=== PATIENT | female | born 1955 | race Caucasian/White ===

== ENCOUNTER → 2016-11-11 | Outpatient (REF) | payer BC ==
[2016-11-11 12:51] LABS: ALBUMIN 3.8 GM/DL (3.2-5.2); ALBUMIN/GLOBULIN RATIO 1.06 (1.00-1.93); ALKALINE PHOSPHATASE 109 U/L (45-117); ALT/SGPT 32 U/L (12-78); ANION GAP 10 MEQ/L (8-16); AST/SGOT 16 U/L (15-37); BILIRUBIN,TOTAL 0.5 MG/DL (0.2-1.0); BLOOD UREA NITROGEN 14 MG/DL (7-18); CALCIUM LEVEL 9.9 MG/DL (8.8-10.2); CARBON DIOXIDE LEVEL 31 MEQ/L (21-32); CHLORIDE LEVEL 98 MEQ/L (98-107); CHOLESTEROL LEVEL 140 MG/DL (<200); CREATININE FOR GFR 0.83 MG/DL (0.55-1.02); GLOMERULAR FILTRATION RATE > 60.0 (>45); GLUCOSE, FASTING 178 MG/DL (80-110); POTASSIUM SERUM 3.6 MEQ/L (3.5-5.1); SODIUM LEVEL 139 MEQ/L (136-145); TOTAL PROTEIN 7.4 GM/DL (6.4-8.2); TRIGLYCERIDES LEVEL 242 MG/DL (<150)
== END ==
LOC: M SFHCADAM 08:02
PROVIDERS: ATTEND Physician Assistant Medical
DX: E78.5 Hyperlipidemia, unspecified (principal); E11.9 Type 2 diabetes mellitus without complications

== ENCOUNTER → 2017-05-13 | Outpatient (REF) | payer BC ==
[2017-05-13 13:07] LABS: BASO # 0.1 10^3/uL (0.0-0.2); BASO % 0.8 % (0.0-1.0); EOS # 0.3 10^3/uL (0.0-0.50); EOS % 2.5 % (0.0-3.0); IMMATURE GRANULOCYTE % 0.4 % (0-0); LYMPH # 2.8 10^3/uL (1.5-4.5); LYMPH % 25.9 % (24.0-44.0); MEAN CORPUSCULAR HEMOGLOBIN 28.4 pg (27.0-33.0); MEAN CORPUSCULAR HGB CONC 33.1 g/dl (32.0-36.5); MEAN CORPUSCULAR VOLUME 85.6 fl (80.0-96.0); MONO # 0.6 10^3/uL (0.0-0.8); MONO % 5.7 % (0.0-5.0); NEUTROPHILS # 6.9 10^3/uL (1.8-7.7); NEUTROPHILS % 64.7 % (36.0-66.0); PLATELET COUNT, AUTOMATED 214 10^3/uL (150-450); RED CELL DISTRIBUTION WIDTH 13.9 % (11.5-14.5); WHITE BLOOD COUNT 10.6 10^3/uL (4.0-10.0)
[2017-05-13 13:59] LABS: VITAMIN B12 LEVEL 642 PG/ML
[2017-05-13 14:00] LABS: FOLATE > 24.0 NG/ML
[2017-05-13 14:01] LABS: ALBUMIN 3.7 GM/DL (3.2-5.2); ALBUMIN/GLOBULIN RATIO 0.97 (1.00-1.93); ALKALINE PHOSPHATASE 133 U/L (45-117); ALT/SGPT 84 U/L (12-78); ANION GAP 8 MEQ/L (8-16); AST/SGOT 54 U/L (7-37); BILIRUBIN,TOTAL 0.3 MG/DL (0.2-1.0); BLOOD UREA NITROGEN 17 MG/DL (7-18); CALCIUM LEVEL 8.9 MG/DL (8.8-10.2); CARBON DIOXIDE LEVEL 30 MEQ/L (21-32); CHLORIDE LEVEL 97 MEQ/L (98-107); CHOLESTEROL LEVEL 145 MG/DL (<200); CREATININE FOR GFR 0.76 MG/DL (0.55-1.02); FREE T4 0.92 NG/DL (0.76-1.46); GLOMERULAR FILTRATION RATE > 60.0 (>45); GLUCOSE, FASTING 257 MG/DL (80-110); MAGNESIUM LEVEL 2.1 MG/DL (1.8-2.4); POTASSIUM SERUM 4.2 MEQ/L (3.5-5.1); SODIUM LEVEL 135 MEQ/L (136-145); TOTAL PROTEIN 7.5 GM/DL (6.4-8.2); TRIGLYCERIDES LEVEL 445 MG/DL (<150)
== END ==
LOC: M SFHCADAM 11:15
PROVIDERS: ATTEND Physician Assistant Medical
DX: E11.9 Type 2 diabetes mellitus without complications (principal); E78.5 Hyperlipidemia, unspecified; E55.9 Vitamin D deficiency, unspecified; E53.8 Deficiency of other specified B group vitamins

== ENCOUNTER → 2017-09-28 | Outpatient (REF) | payer BC ==
[2017-09-28 12:58] LABS: ALBUMIN 3.8 GM/DL (3.2-5.2); ALBUMIN/GLOBULIN RATIO 0.93 (1.00-1.93); ALKALINE PHOSPHATASE 144 U/L (45-117); ALT/SGPT 111 U/L (12-78); ANION GAP 10 MEQ/L (8-16); AST/SGOT 70 U/L (7-37); BILIRUBIN,TOTAL 0.4 MG/DL (0.2-1.0); BLOOD UREA NITROGEN 20 MG/DL (7-18); CALCIUM LEVEL 9.4 MG/DL (8.8-10.2); CARBON DIOXIDE LEVEL 30 MEQ/L (21-32); CHLORIDE LEVEL 95 MEQ/L (98-107); CHOLESTEROL LEVEL 119 MG/DL (<200); CHOLESTEROL RISK RATIO 5.409 (<5); CREATININE FOR GFR 0.98 MG/DL (0.55-1.30); GLOMERULAR FILTRATION RATE > 60.0 (>45); GLUCOSE, FASTING 283 MG/DL (70-100); HDL CHOLESTEROL 22 MG/DL (>40); LDL CHOLESTEROL 47.8 MG/DL (<100); NON-HDL-C 97 MG/DL; POTASSIUM SERUM 3.7 MEQ/L (3.5-5.1); SODIUM LEVEL 135 MEQ/L (136-145); TOTAL PROTEIN 7.9 GM/DL (6.4-8.2); TRIGLYCERIDES LEVEL 246 MG/DL (<150)
[2017-09-28 13:23] LABS: ESTIMATED AVERAGE GLUCOSE 237 MG/DL (60-110); HEMOGLOBIN A1c 9.9 %
== END ==
LOC: M SFHCADAM 10:00
DX: E11.9 Type 2 diabetes mellitus without complications (principal); E78.5 Hyperlipidemia, unspecified; E55.9 Vitamin D deficiency, unspecified
CPT/HCPCS: 80053

== ENCOUNTER 2017-10-13 06:44 | Outpatient (CLI) | payer BC | END 2017-10-14 | LOC: M RAD 06:44 | DX: K76.0 Fatty (change of) liver, not elsewhere classified (principal); K75.89 Other specified inflammatory liver diseases; N28.1 Cyst of kidney, acquired | CPT/HCPCS: 76705 ==

== ENCOUNTER → 2018-01-19 | Outpatient (REF) | payer BC ==
[2018-01-19 12:44] LABS: AMMONIA 34 uMOL/L (<32)
[2018-01-19 12:53] LABS: ALBUMIN 3.7 GM/DL (3.2-5.2); ALBUMIN/GLOBULIN RATIO 0.95 (1.00-1.93); ALKALINE PHOSPHATASE 108 U/L (45-117); ALT/SGPT 66 U/L (12-78); ANION GAP 9 MEQ/L (8-16); AST/SGOT 43 U/L (7-37); BILIRUBIN,TOTAL 0.3 MG/DL (0.2-1.0); BLOOD UREA NITROGEN 10 MG/DL (7-18); CALCIUM LEVEL 9.5 MG/DL (8.8-10.2); CARBON DIOXIDE LEVEL 27 MEQ/L (21-32); CHLORIDE LEVEL 104 MEQ/L (98-107); CREATININE FOR GFR 0.86 MG/DL (0.55-1.30); GLOMERULAR FILTRATION RATE > 60.0 (>45); GLUCOSE, FASTING 234 MG/DL (70-100); POTASSIUM SERUM 4.1 MEQ/L (3.5-5.1); SODIUM LEVEL 140 MEQ/L (136-145); TOTAL PROTEIN 7.6 GM/DL (6.4-8.2)
[2018-01-19 12:57] LABS: TOTAL 25(OH) VITAMIN D 28.5 NG/ML (30.0-100.0)
[2018-01-19 13:09] LABS: HEPATITIS B SURFACE ANTIGEN NEGATIVE (NEGATIVE)
[2018-01-19 13:30] LABS: ESTIMATED AVERAGE GLUCOSE 183 MG/DL (60-110)
[2018-01-19 13:36] LABS: HEPATITIS C VIRUS ABY INDEX 0.1 INDEX (<0.8)
[2018-01-21 09:59] LABS: ALPHA FETOPROTEIN TUMOR QUANT 3.9 NG/ML (<8.1)
== END ==
LOC: M SFHCADAM 09:42
DX: K76.0 Fatty (change of) liver, not elsewhere classified (principal); E11.9 Type 2 diabetes mellitus without complications; E55.9 Vitamin D deficiency, unspecified
CPT/HCPCS: 82140

== ENCOUNTER → 2018-05-17 | Outpatient (REF) | payer BC ==
[2018-05-17 14:16] LABS: BASO # 0.1 10^3/uL (0.0-0.2); BASO % 0.6 % (0.0-1.0); EOS # 0.3 10^3/uL (0.0-0.50); HEMATOCRIT 50.8 % (36.0-47.0); HEMOGLOBIN 16.5 g/dl (12.0-15.5); IMMATURE GRANULOCYTE % 0.5 % (0-3.0); LYMPH # 2.7 10^3/uL (1.5-4.5); LYMPH % 20.9 % (24.0-44.0); MEAN CORPUSCULAR HEMOGLOBIN 28.6 pg (27.0-33.0); MEAN CORPUSCULAR HGB CONC 32.5 g/dl (32.0-36.5); MEAN CORPUSCULAR VOLUME 88.2 fl (80.0-96.0); MONO # 0.6 10^3/uL (0.0-0.8); MONO % 4.4 % (0.0-5.0); NEUTROPHILS # 9.2 10^3/uL (1.8-7.7); NEUTROPHILS % 71.6 % (36.0-66.0); PLATELET COUNT, AUTOMATED 224 10^3/uL (150-450); RED BLOOD COUNT 5.76 10^6/uL (4.00-5.40); WHITE BLOOD COUNT 12.9 10^3/uL (4.0-10.0)
[2018-05-17 14:29] LABS: ALBUMIN 3.8 GM/DL (3.2-5.2); ALBUMIN/GLOBULIN RATIO 1.03 (1.00-1.93); ALKALINE PHOSPHATASE 95 U/L (45-117); ALT/SGPT 69 U/L (12-78); ANION GAP 11 MEQ/L (8-16); AST/SGOT 38 U/L (7-37); BILIRUBIN,TOTAL 0.5 MG/DL (0.2-1.0); BLOOD UREA NITROGEN 16 MG/DL (7-18); CALCIUM LEVEL 9.2 MG/DL (8.8-10.2); CARBON DIOXIDE LEVEL 27 MEQ/L (21-32); CHLORIDE LEVEL 102 MEQ/L (98-107); CHOLESTEROL LEVEL 158 MG/DL (<200); CHOLESTEROL RISK RATIO 6.076 (<5); CREATININE FOR GFR 0.87 MG/DL (0.55-1.30); GLOMERULAR FILTRATION RATE > 60.0 (>45); GLUCOSE, FASTING 192 MG/DL (70-100); HDL CHOLESTEROL 26 MG/DL (>40); LDL CHOLESTEROL 92 MG/DL (<100); NON-HDL-C 132 MG/DL; SODIUM LEVEL 140 MEQ/L (136-145); TOTAL 25(OH) VITAMIN D 56.9 NG/ML (30.0-100.0); TOTAL PROTEIN 7.5 GM/DL (6.4-8.2); TRIGLYCERIDES LEVEL 198 MG/DL (<150)
[2018-05-17 14:37] LABS: ESTIMATED AVERAGE GLUCOSE 189 MG/DL (60-110); HEMOGLOBIN A1c 8.2 %
[2018-05-17 14:48] LABS: MALB URINE SIEMENS 64.6 MG/L; MAU/CREAT RATIO 24.5 MCG/MG (0.0-30.0)
== END ==
LOC: M SFHCADAM 08:09
DX: E11.9 Type 2 diabetes mellitus without complications (principal); E66.01 Morbid (severe) obesity due to excess calories
CPT/HCPCS: 84443

== ENCOUNTER → 2018-12-27 | Outpatient (REF) | payer BC ==
[2018-12-27 13:45] LABS: BASO # 0.1 10^3/uL (0.0-0.2); BASO % 0.8 % (0.0-1.0); EOS # 0.3 10^3/uL (0.0-0.50); EOS % 2.5 % (0.0-3.0); HEMATOCRIT 50.3 % (36.0-47.0); HEMOGLOBIN 16.4 g/dl (12.0-15.5); LYMPH # 3.4 10^3/uL (1.5-4.5); LYMPH % 34.8 % (24.0-44.0); MEAN CORPUSCULAR HEMOGLOBIN 29.3 pg (27.0-33.0); MEAN CORPUSCULAR HGB CONC 32.6 g/dl (32.0-36.5); MONO # 0.6 10^3/uL (0.0-0.8); MONO % 6.2 % (0.0-5.0); NEUTROPHILS # 5.4 10^3/uL (1.8-7.7); NEUTROPHILS % 55.2 % (36.0-66.0); PLATELET COUNT, AUTOMATED 209 10^3/uL (150-450); RED BLOOD COUNT 5.59 10^6/uL (4.00-5.40); WHITE BLOOD COUNT 9.8 10^3/uL (4.0-10.0)
[2018-12-27 13:49] LABS: ALBUMIN 3.8 GM/DL (3.2-5.2); ALT/SGPT 46 U/L (12-78); BILIRUBIN,TOTAL 0.3 MG/DL (0.2-1.0); BLOOD UREA NITROGEN 17 MG/DL (7-18); CALCIUM LEVEL 10.2 MG/DL (8.8-10.2); CARBON DIOXIDE LEVEL 34 MEQ/L (21-32); CHLORIDE LEVEL 100 MEQ/L (98-107); CHOLESTEROL LEVEL 162 MG/DL (<200); CHOLESTEROL RISK RATIO 4.909 (<5); CREATININE FOR GFR 0.92 MG/DL (0.55-1.30); GLOMERULAR FILTRATION RATE > 60.0 (>45); GLUCOSE, FASTING 173 MG/DL (70-100); HDL CHOLESTEROL 33 MG/DL (>40); LDL CHOLESTEROL 65 MG/DL (<100); MAGNESIUM LEVEL 2.3 MG/DL (1.8-2.4); NON-HDL-C 129 MG/DL; POTASSIUM SERUM 3.8 MEQ/L (3.5-5.1); SODIUM LEVEL 140 MEQ/L (136-145); TOTAL PROTEIN 7.9 GM/DL (6.4-8.2); TRIGLYCERIDES LEVEL 321 MG/DL (<150)
[2018-12-27 13:52] LABS: TOTAL 25(OH) VITAMIN D 41.8 NG/ML (30.0-100.0); VITAMIN B12 LEVEL > 2000 PG/ML (247-911)
[2018-12-27 14:36] LABS: HEMOGLOBIN A1c 8.2 %
== END ==
LOC: M SFHCADAM 08:02
PROVIDERS: ATTEND Physician Assistant Medical
DX: I10 Essential (primary) hypertension (principal); E78.5 Hyperlipidemia, unspecified; E59 Dietary selenium deficiency; E53.8 Deficiency of other specified B group vitamins; E11.630 Type 2 diabetes mellitus with periodontal disease

== ENCOUNTER → 2019-01-28 | Outpatient (CLI) | payer BC ==
--- NOTE | 2019-02-02 09:48 | SLEEPCENT ---
DATE OF STUDY: 01/28/2019 ORDERED BY: Dr. Kelvin Varner Nocturnal polysomnography was performed for retitration of pressure therapy in this patient with obstructive sleep apnea syndrome. For testing, a ResMed Quattro full face mask of small size was used, 11 cm of water pressure were applied to the circuit, and the lights were extinguished. 7 hours and 5 minutes of data were reviewed. They were 358 minutes of sleep identified. Sleep latency was normal at 9.5 minutes. Rapid eye movement (REM) latency was normal at 60.5 minutes. Sleep architecture was fairly good with four to five REM cycles. Overall sleep efficiency 85.2%. The electrocardiogram showed a sinus rhythm with an average heart rate of 68 beats per minute. Electroencephalogram (EEG) showed reasonably normal waveforms for awake and sleep. Respiratory events were best palliated with continuous positive airway pressure (CPAP) at a pressure of +12 with some limb activity noted; however, limb movement arousal index was only 4. IMPRESSION: Obstructive sleep apnea syndrome (G47.33). RECOMMENDATION: Nightly use of pressure therapy 12 cm of water.
== END ==
LOC: M SLEEP 20:03
PROVIDERS: ATTEND Internal Medicine Pulmonary Disease
DX: G47.33 Obstructive sleep apnea (adult) (pediatric) (principal)

== ENCOUNTER → 2019-03-12 | Outpatient (CLI) | payer MEDICARE, BC ==
--- NOTE | 2019-03-13 08:18 | REP ---
LEFT WRIST COMPLETE: 03/12/2019. Clinical history: Left wrist pain. Findings: Four views provided with no prior study. There is narrowing and sclerosis with spur formation at the first CMC joint of the greater and lesser multangular bones. This is an advanced osteoarthritic change. There is also some sclerosis and subchondral cyst along the ulnar aspect of the lunate along the proximal cortex. The scapholunate joint appears slightly widened inferiorly. There is no lunate subluxation or dislocation. Remainder of the carpal bones and the metacarpals and phalanges are without fracture or acute finding. There are some degenerative changes at some of the IP joints. Impression: 1. 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 2. Sclerosis and subchondral cystic change in the articular margin of the lunate of the adjacent radiocarpal joint and ulna. No acute fracture. Electronically Signed by Rhys West MD 03/13/2019 10:05 A
== END ==
LOC: M ADAMS 15:08
PROVIDERS: ATTEND Physician Assistant
DX: M19.032 Primary osteoarthritis, left wrist (principal); M25.532 Pain in left wrist

== ENCOUNTER → 2019-03-12 | Outpatient (CLI) | payer MEDICARE, BC ==
[2019-03-12 17:34] LABS: BASO # 0.1 10^3/uL (0.0-0.2); BASO % 0.7 % (0.0-1.0); EOS # 0.2 10^3/uL (0.0-0.5); EOS % 1.6 % (0.0-3.0); HEMATOCRIT 47.1 % (36.0-47.0); HEMOGLOBIN 15.6 g/dl (12.0-15.5); LYMPH # 2.6 10^3/uL (1.5-5.0); LYMPH % 21.4 % (24.0-44.0); MEAN CORPUSCULAR HEMOGLOBIN 29.8 pg (27.0-33.0); MEAN CORPUSCULAR HGB CONC 33.1 g/dl (32.0-36.5); MEAN CORPUSCULAR VOLUME 89.9 fl (80.0-96.0); MONO # 0.6 10^3/uL (0.0-0.8); MONO % 4.6 % (0.0-5.0); NEUTROPHILS # 8.7 10^3/uL (1.5-8.5); NEUTROPHILS % 71.2 % (36.0-66.0); PLATELET COUNT, AUTOMATED 234 10^3/uL (150-450); RED BLOOD COUNT 5.24 10^6/uL (4.00-5.40); WHITE BLOOD COUNT 12.2 10^3/uL (4.0-10.0)
== END ==
LOC: M LABDRWAD 15:12
PROVIDERS: ATTEND Physician Assistant
DX: M25.532 Pain in left wrist (principal)

== ENCOUNTER → 2019-03-31 | Outpatient (CLI) | payer MEDICARE, BC ==
[2019-03-31 14:42] LABS: BASO # 0.1 10^3/uL (0.0-0.2); BASO % 0.8 % (0.0-1.0); EOS # 0.1 10^3/uL (0.0-0.5); EOS % 1.3 % (0.0-3.0); HEMATOCRIT 48.8 % (36.0-47.0); HEMOGLOBIN 16.2 g/dl (12.0-15.5); LYMPH # 3.4 10^3/uL (1.5-5.0); LYMPH % 31.6 % (24.0-44.0); MEAN CORPUSCULAR HEMOGLOBIN 29.3 pg (27.0-33.0); MEAN CORPUSCULAR HGB CONC 33.2 g/dl (32.0-36.5); MEAN CORPUSCULAR VOLUME 88.2 fl (80.0-96.0); MONO # 0.5 10^3/uL (0.0-0.8); MONO % 4.9 % (0.0-5.0); NEUTROPHILS # 6.6 10^3/uL (1.5-8.5); NEUTROPHILS % 60.9 % (36.0-66.0); PLATELET COUNT, AUTOMATED 219 10^3/uL (150-450); RED BLOOD COUNT 5.53 10^6/uL (4.00-5.40); WHITE BLOOD COUNT 10.9 10^3/uL (4.0-10.0)
[2019-03-31 15:16] LABS: MALB URINE SIEMENS 13.9 MG/L; MAU/CREAT RATIO 12.1 MCG/MG (0.0-30.0)
[2019-03-31 15:21] LABS: ALBUMIN 3.7 GM/DL (3.2-5.2); ALT/SGPT 41 U/L (12-78); BILIRUBIN,TOTAL 0.5 MG/DL (0.2-1.0); BLOOD UREA NITROGEN 18 MG/DL (7-18); CALCIUM LEVEL 9.8 MG/DL (8.8-10.2); CARBON DIOXIDE LEVEL 31 MEQ/L (21-32); CHLORIDE LEVEL 99 MEQ/L (98-107); CHOLESTEROL LEVEL 147 MG/DL (<200); CREATININE FOR GFR 0.92 MG/DL (0.55-1.30); GLOMERULAR FILTRATION RATE > 60.0 (>45); GLUCOSE, FASTING 105 MG/DL (70-100); HDL CHOLESTEROL 30 MG/DL (>40); LDL CHOLESTEROL 73 MG/DL (<100); NON-HDL-C 117 MG/DL; POTASSIUM SERUM 3.3 MEQ/L (3.5-5.1); SODIUM LEVEL 137 MEQ/L (136-145); TOTAL PROTEIN 7.8 GM/DL (6.4-8.2); TRIGLYCERIDES LEVEL 219 MG/DL (<150)
[2019-03-31 16:15] LABS: HEMOGLOBIN A1c 7.3 %
== END ==
LOC: M LAB 13:41
PROVIDERS: ATTEND Physician Assistant Medical
DX: I10 Essential (primary) hypertension (principal); E78.5 Hyperlipidemia, unspecified; E55.9 Vitamin D deficiency, unspecified; E53.9 Vitamin B deficiency, unspecified; E11.630 Type 2 diabetes mellitus with periodontal disease

== ENCOUNTER → 2019-04-03 | Outpatient (REF) | payer MEDICARE, BC | LOC: M SFHCADAM 14:41 | PROVIDERS: ATTEND Physician Assistant Medical | DX: M25.532 Pain in left wrist (principal); E11.630 Type 2 diabetes mellitus with periodontal disease | CPT/HCPCS: 84550; 90682; G0008; G0463 ==

== ENCOUNTER → 2019-05-02 | Outpatient (REF) | payer MEDICARE, BC ==
[2019-05-02 19:24] LABS: BASO # 0.1 10^3/uL (0.0-0.2); BASO % 0.8 % (0.0-1.0); EOS # 0.2 10^3/uL (0.0-0.5); EOS % 1.7 % (0.0-3.0); HEMATOCRIT 47.3 % (36.0-47.0); HEMOGLOBIN 15.3 g/dl (12.0-15.5); LYMPH # 2.7 10^3/uL (1.5-5.0); MEAN CORPUSCULAR HGB CONC 32.3 g/dl (32.0-36.5); MEAN CORPUSCULAR VOLUME 89.8 fl (80.0-96.0); MONO # 0.5 10^3/uL (0.0-0.8); MONO % 5.7 % (0.0-5.0); NEUTROPHILS # 5.2 10^3/uL (1.5-8.5); NEUTROPHILS % 60.1 % (36.0-66.0); PLATELET COUNT, AUTOMATED 225 10^3/uL (150-450); RED BLOOD COUNT 5.27 10^6/uL (4.00-5.40); WHITE BLOOD COUNT 8.7 10^3/uL (4.0-10.0)
[2019-05-02 19:35] LABS: BLOOD UREA NITROGEN 14 MG/DL (7-18); CALCIUM LEVEL 9.6 MG/DL (8.8-10.2); CARBON DIOXIDE LEVEL 28 MEQ/L (21-32); CHLORIDE LEVEL 105 MEQ/L (98-107); CREATININE FOR GFR 0.79 MG/DL (0.55-1.30); GLOMERULAR FILTRATION RATE > 60.0 (>45); GLUCOSE, FASTING 146 MG/DL (70-100); POTASSIUM SERUM 3.8 MEQ/L (3.5-5.1); SODIUM LEVEL 140 MEQ/L (136-145)
[2019-05-02 19:36] LABS: ALBUMIN 3.7 GM/DL (3.2-5.2); ALT/SGPT 37 U/L (12-78); BILIRUBIN,TOTAL 0.3 MG/DL (0.2-1.0); CHOLESTEROL LEVEL 159 MG/DL (<200); CHOLESTEROL RISK RATIO 4.297 (<5); HDL CHOLESTEROL 37 MG/DL (>40); LDL CHOLESTEROL 77 MG/DL (<100); NON-HDL-C 122 MG/DL; TOTAL PROTEIN 7.5 GM/DL (6.4-8.2); TRIGLYCERIDES LEVEL 225 MG/DL (<150)
[2019-05-02 19:43] LABS: HEMOGLOBIN A1c 7.8 %
[2019-05-02 20:05] LABS: CREATININE, URINE < 13.0 MG/DL; MALB URINE SIEMENS < 5.0 MG/L
== END ==
LOC: M SFHCADAM 13:42
PROVIDERS: ATTEND Physician Assistant Medical
DX: I10 Essential (primary) hypertension (principal); E78.5 Hyperlipidemia, unspecified; E55.9 Vitamin D deficiency, unspecified; E53.8 Deficiency of other specified B group vitamins; E11.630 Type 2 diabetes mellitus with periodontal disease

== ENCOUNTER 2019-07-05 06:29 | Day surgery (SDC) | payer MEDICARE, BC ==
[~2019-07-05] VITALS: Ht 170.2 cm; Wt 108.9 kg
[~2019-07-05 06:29] MED LIST: ALTA1CAP4 PO; AMLO10TA PO; ASPI81TA85 PO; B-12100T2 PO; BASA100I SC; CALC600T60 PO; FURO40TA2 PO; GLIM4TAB5 PO; HYDR25TAB PO; K-TA10TA PO; MAGN400C2 PO; METF10004 PO; METO200T28 PO; NO ITAB PO; NS 1,000 ML IV ONE; OMEG10002 PO; SUPETAB44 PO; TRUL10IN SC; VITA1CAP25 PO
[2019-07-05] MEDS ORDERED: LIDOCAINE 2% INJ 100 MG/5 ML SDV (FOR ANES.) As Ordered ONE (07:08)
[2019-07-05] MEDS ORDERED: propofoL 200 MG/20 ML VIAL As Ordered ONE ×2 (07:10→08:31)
--- NOTE | 2019-07-05 08:41 | ROOR ---
Patient Name: Smiley Austin Procedure Date: 07/05/2019 7:59 AM Date of : 1955 Age: 64 Room: [facility] Gender: Female Note Status: Finalized Procedure: Colonoscopy Indications: High risk colon cancer surveillance: Personal history of colonic polyps Providers: DO Tammi Jeffers MD: KRISTIN Cummings Requesting Provider: Medicines: Propofol per Anesthesia Complications: No immediate complications. Procedure: Pre-Anesthesia Assessment: - Prior to the procedure, a History and Physical was performed, and patient medications and allergies were reviewed. The patient is competent. The risks and benefits of the procedure and the sedation options and risks were discussed with the patient. All questions were answered and informed consent was obtained. Patient identification and proposed procedure were verified by the physician, the nurse, the anesthesiologist and the refrigerating technician in the endoscopy suite. Mental Status Examination: alert and oriented. Airway Examination: normal oropharyngeal airway and neck mobility. Respiratory Examination: clear to auscultation. CV Examination: normal. Prophylactic Antibiotics: The patient does not require prophylactic antibiotics. Prior Anticoagulants: The patient has taken no previous anticoagulant or antiplatelet agents. ASA Grade Assessment: II - A patient with mild systemic disease. After reviewing the risks and benefits, the patient was deemed in satisfactory condition to undergo the procedure. The anesthesia plan was to use monitored anesthesia care (MAC). Immediately prior to administration of medications, the patient was re-assessed for adequacy to receive sedatives. The heart rate, respiratory rate, oxygen saturations, blood pressure, adequacy of pulmonary ventilation, and response to care were monitored throughout the procedure. The physical status of the patient was re-assessed after the procedure. The Colonoscope was introduced through the anus and advanced to the cecum, identified by palpation. The colonoscopy was performed without difficulty. The patient tolerated the procedure well. The quality of the bowel preparation was not adequate to identify polyps 6 mm and larger in size. Findings: Four hyperplastic polyps were found in the transverse colon and ascending colon. The polyps were less than 5 mm in size. These polyps were removed with a jumbo cold forceps. Resection and retrieval were complete. Estimated blood loss was minimal. Non-bleeding internal hemorrhoids were found during retroflexion. The hemorrhoids were mild and Grade II (internal hemorrhoids that prolapse but reduce spontaneously). The exam was otherwise without abnormality on direct and retroflexion views. Impression: - Preparation of the colon was inadequate. - Four less than 5 mm polyps in the transverse colon and in the ascending colon, removed with a jumbo cold forceps. Resected and retrieved. - Non-bleeding internal hemorrhoids. - The examination was otherwise normal on direct and retroflexion views. Recommendation: - Patient has a contact number available for emergencies. The signs and symptoms of potential delayed complications were discussed with the patient. Return to normal activities tomorrow. Written discharge instructions were provided to the patient. - Repeat colonoscopy in 3 - 5 years for surveillance based on pathology results. - Return to my office as previously scheduled. Atif Mcdonald DO 07/05/2019 8:40:23 AM Electronically signed by Atif Mcdonald DO Number of Addenda: 0 Note Initiated On: 07/05/2019 7:59 AM Estimated Blood Loss: Estimated blood loss was minimal.
[2019-07-05 09:03] VITALS: BP 133/89
== END 2019-07-05 09:20 | disposition home or self-care (01) ==
LOC: M OPP 06:29
PROVIDERS: ATTEND Surgery
DX: Z12.11 Encounter for screening for malignant neoplasm of colon (principal); Z86.010 Personal history of colon polyps; K64.1 Second degree hemorrhoids; K63.5 Polyp of colon; F17.210 Nicotine dependence, cigarettes, uncomplicated; Z79.4 Long term (current) use of insulin; Z79.82 Long term (current) use of aspirin; Z79.899 Other long term (current) drug therapy; Z88.0 Allergy status to penicillin; Z91.018 Allergy to other foods

== ENCOUNTER → 2019-07-07 | Outpatient (REF) | payer MEDICARE, BC ==
[~2019-07-07] MED LIST changes: -NS 1,000 ML IV ONE
== END ==
LOC: M LAB REF 14:49
PROVIDERS: ATTEND Dermatology
DX: C44.622 Squamous cell carcinoma of skin of right upper limb, including shoulder (principal)
CPT/HCPCS: 11102; 88305; G0463

== ENCOUNTER → 2019-07-27 | Outpatient (REF) | payer MEDICARE, BC | LOC: M LAB REF 18:13 | PROVIDERS: ATTEND Dermatology | DX: L57.8 Other skin changes due to chronic exposure to nonionizing radiation (principal) ==

== ENCOUNTER → 2019-08-14 | Outpatient (REF) | payer MEDICARE, BC ==
[2019-08-14 15:33] LABS: BASO # 0.1 10^3/uL (0.0-0.2); BASO % 0.7 % (0.0-1.0); EOS # 0.2 10^3/uL (0.0-0.5); EOS % 2.2 % (0.0-3.0); HEMATOCRIT 49.5 % (36.0-47.0); HEMOGLOBIN 16.1 g/dl (12.0-15.5); LYMPH # 3.5 10^3/uL (1.5-5.0); LYMPH % 31.5 % (24.0-44.0); MEAN CORPUSCULAR HEMOGLOBIN 28.9 pg (27.0-33.0); MEAN CORPUSCULAR HGB CONC 32.5 g/dl (32.0-36.5); MEAN CORPUSCULAR VOLUME 88.9 fl (80.0-96.0); MONO # 0.5 10^3/uL (0.0-0.8); MONO % 4.4 % (0.0-5.0); NEUTROPHILS # 6.7 10^3/uL (1.5-8.5); NEUTROPHILS % 60.8 % (36.0-66.0); PLATELET COUNT, AUTOMATED 227 10^3/uL (150-450); RED BLOOD COUNT 5.57 10^6/uL (4.00-5.40)
[2019-08-14 15:59] LABS: HEMOGLOBIN A1c 7.3 %
[2019-08-14 16:11] LABS: ALT/SGPT 32 U/L (12-78); BILIRUBIN,TOTAL 0.3 MG/DL (0.2-1.0); BLOOD UREA NITROGEN 18 MG/DL (7-18); CALCIUM LEVEL 10.1 MG/DL (8.8-10.2); CARBON DIOXIDE LEVEL 33 MEQ/L (21-32); CHLORIDE LEVEL 99 MEQ/L (98-107); CHOLESTEROL LEVEL 172 MG/DL (<200); CHOLESTEROL RISK RATIO 5.548 (<5); CREATININE FOR GFR 0.79 MG/DL (0.55-1.30); FREE T4 1.11 NG/DL (0.76-1.46); GLOMERULAR FILTRATION RATE > 60.0 (>45); GLUCOSE, FASTING 90 MG/DL (70-100); HDL CHOLESTEROL 31 MG/DL (>40); LDL CHOLESTEROL 83 MG/DL (<100); MAGNESIUM LEVEL 2.5 MG/DL (1.8-2.4); NON-HDL-C 141 MG/DL; POTASSIUM SERUM 3.6 MEQ/L (3.5-5.1); SODIUM LEVEL 137 MEQ/L (136-145); TOTAL PROTEIN 7.9 GM/DL (6.4-8.2); TRIGLYCERIDES LEVEL 289 MG/DL (<150)
[2019-08-14 16:13] LABS: VITAMIN B12 LEVEL > 2000 PG/ML (247-911)
== END ==
LOC: M SFHCADAM 12:18
PROVIDERS: ATTEND Physician Assistant Medical
DX: I10 Essential (primary) hypertension (principal); E78.5 Hyperlipidemia, unspecified; E55.9 Vitamin D deficiency, unspecified; E53.8 Deficiency of other specified B group vitamins; K76.0 Fatty (change of) liver, not elsewhere classified; E83.42 Hypomagnesemia; E11.630 Type 2 diabetes mellitus with periodontal disease

== ENCOUNTER → 2020-02-28 | Outpatient (REF) | payer MEDICARE, BC ==
[~2020-02-28] MED LIST changes: -ASPI81TA85 PO; +ASPI81TA86 PO
[2020-02-28 13:35] LABS: BASO # 0.1 10^3/uL (0.0-0.2); BASO % 0.7 % (0.0-1.0); EOS # 0.3 10^3/uL (0.0-0.5); EOS % 2.2 % (0.0-3.0); HEMATOCRIT 48.2 % (36.0-47.0); HEMOGLOBIN 15.6 g/dl (12.0-15.5); LYMPH # 3.4 10^3/uL (1.5-5.0); LYMPH % 29.9 % (24.0-44.0); MEAN CORPUSCULAR HGB CONC 32.4 g/dl (32.0-36.5); MEAN CORPUSCULAR VOLUME 89.6 fl (80.0-96.0); MONO # 0.6 10^3/uL (0.0-0.8); MONO % 5.3 % (0.0-5.0); NEUTROPHILS % 61.1 % (36.0-66.0); PLATELET COUNT, AUTOMATED 228 10^3/uL (150-450); RED BLOOD COUNT 5.38 10^6/uL (4.00-5.40); WHITE BLOOD COUNT 11.4 10^3/uL (4.0-10.0)
[2020-02-28 14:06] LABS: ALBUMIN 3.7 GM/DL (3.2-5.2); ALT/SGPT 39 U/L (12-78); BILIRUBIN,TOTAL 0.3 MG/DL (0.2-1.0); BLOOD UREA NITROGEN 13 MG/DL (7-18); CALCIUM LEVEL 10.2 MG/DL (8.8-10.2); CARBON DIOXIDE LEVEL 30 MEQ/L (21-32); CHLORIDE LEVEL 103 MEQ/L (98-107); CHOLESTEROL LEVEL 179 MG/DL (<200); CHOLESTEROL RISK RATIO 5.424 (<5); CREATININE FOR GFR 0.86 MG/DL (0.55-1.30); GLOMERULAR FILTRATION RATE > 60.0 (>45); GLUCOSE, FASTING 87 MG/DL (70-100); HDL CHOLESTEROL 33 MG/DL (>40); LDL CHOLESTEROL 82 MG/DL (<100); NON-HDL-C 146 MG/DL; POTASSIUM SERUM 3.9 MEQ/L (3.5-5.1); SODIUM LEVEL 139 MEQ/L (136-145); TOTAL PROTEIN 7.5 GM/DL (6.4-8.2); TRIGLYCERIDES LEVEL 322 MG/DL (<150)
[2020-02-28 14:18] LABS: HEMOGLOBIN A1c 7.1 %
== END ==
LOC: M SFHCADAM 12:45
PROVIDERS: ATTEND Physician Assistant Medical
DX: E11.9 Type 2 diabetes mellitus without complications (principal)

== ENCOUNTER → 2020-07-17 | Outpatient (REF) | payer MEDICARE, BC ==
[~2020-07-17] MED LIST changes: +HYDR-3490 PO; -HYDR25TAB PO
[2020-07-17 17:43] LABS: ALBUMIN 4.1 GM/DL (3.2-5.2); ALT/SGPT 70 U/L (12-78); BILIRUBIN,TOTAL 0.4 MG/DL (0.2-1.0); BLOOD UREA NITROGEN 19 MG/DL (7-18); CARBON DIOXIDE LEVEL 32 MEQ/L (21-32); CHLORIDE LEVEL 98 MEQ/L (98-107); CHOLESTEROL LEVEL 167 MG/DL (<200); CHOLESTEROL RISK RATIO 4.911 (<5); CREATININE FOR GFR 0.84 MG/DL (0.55-1.30); GLOMERULAR FILTRATION RATE > 60.0 (>45); GLUCOSE, FASTING 82 MG/DL (70-100); HDL CHOLESTEROL 34 MG/DL (>40); LDL CHOLESTEROL 93 MG/DL (<100); MAGNESIUM LEVEL 2.1 MG/DL (1.8-2.4); NON-HDL-C 133 MG/DL; SODIUM LEVEL 139 MEQ/L (136-145); TOTAL PROTEIN 7.7 GM/DL (6.4-8.2); TRIGLYCERIDES LEVEL 198 MG/DL (<150)
[2020-07-17 18:19] LABS: TOTAL 25(OH) VITAMIN D 46.8 NG/ML (30.0-100.0)
[2020-07-17 19:45] LABS: HEMOGLOBIN A1c 8.6 %
== END ==
LOC: M SFHCADAM 14:40
PROVIDERS: ATTEND Physician Assistant Medical
DX: E78.5 Hyperlipidemia, unspecified (principal); E55.9 Vitamin D deficiency, unspecified; E83.42 Hypomagnesemia; E11.630 Type 2 diabetes mellitus with periodontal disease

== ENCOUNTER → 2020-07-23 | Outpatient (REF) | payer MEDICARE, BC | LOC: M SFHCADAM 13:48 | PROVIDERS: ATTEND Physician Assistant Medical | DX: E83.52 Hypercalcemia (principal) ==

== ENCOUNTER → 2020-08-05 | Outpatient (CLI) | payer MEDICARE, BC ==
--- NOTE | 2020-08-05 09:07 | REP ---
INDICATION: NICTOINE DEPENDENCY. COMPARISON: 04/08/2020, 04/04/2019 TECHNIQUE: Low-dose CT lung screening protocol with only lung window images for interpretation as per protocol. FINDINGS: Lung more show some dependent atelectatic changes posteriorly in the mid and lower lung zones. I see no pleural effusion, pleural thickening, calcified pleural plaque, parenchymal mass or acute infiltrate there are a few scattered bullae in the upper lung zones. No gross cardiomegaly. IMPRESSION: Lung RADS category 1 exam. No evidence of malignancy. Patients with this category of examination have less than 1% chance of malignancy at the time of the examination. No parenchymal nodules, parenchymal mass, pleural effusion or acute infiltrate. No pleural based mass. Annual screening recommended for patients at high risk of malignancy. <Electronically signed by Rhys West > 08/05/20 0904
== END ==
LOC: M RAD 07:17
PROVIDERS: ATTEND Physician Assistant Medical
DX: F17.200 Nicotine dependence, unspecified, uncomplicated (principal)

== ENCOUNTER → 2020-11-19 | Outpatient (REF) | payer MEDICARE, BC ==
[2020-11-19 15:06] LABS: ALBUMIN 4.1 GM/DL (3.2-5.2); ALT/SGPT 51 U/L (12-78); BILIRUBIN,TOTAL 0.3 MG/DL (0.2-1.0); BLOOD UREA NITROGEN 18 MG/DL (7-18); CALCIUM LEVEL 10.3 MG/DL (8.8-10.2); CARBON DIOXIDE LEVEL 29 MEQ/L (21-32); CHLORIDE LEVEL 100 MEQ/L (98-107); CHOLESTEROL LEVEL 149 MG/DL (<200); CHOLESTEROL RISK RATIO 4.806 (<5); GLOMERULAR FILTRATION RATE > 60.0 (>45); GLUCOSE, FASTING 143 MG/DL (70-100); HDL CHOLESTEROL 31 MG/DL (>40); LDL CHOLESTEROL 68 MG/DL (<100); NON-HDL-C 118 MG/DL; POTASSIUM SERUM 3.6 MEQ/L (3.5-5.1); SODIUM LEVEL 138 MEQ/L (136-145); TOTAL PROTEIN 7.8 GM/DL (6.4-8.2); TRIGLYCERIDES LEVEL 248 MG/DL (<150)
[2020-11-19 15:58] LABS: HEMOGLOBIN A1c 7.8 %
== END ==
LOC: M SFHCADAM 11:20
PROVIDERS: ATTEND Physician Assistant Medical
DX: F17.200 Nicotine dependence, unspecified, uncomplicated (principal); E11.630 Type 2 diabetes mellitus with periodontal disease

== ENCOUNTER → 2021-04-15 | Outpatient (REF) | payer MEDICARE, BC ==
[2021-04-15 14:00] LABS: BASO # 0.1 10^3/uL (0.0-0.2); BASO % 0.6 % (0.0-1.0); EOS # 0.2 10^3/uL (0.0-0.5); EOS % 1.9 % (0.0-3.0); HEMATOCRIT 52.1 % (36.0-47.0); LYMPH # 3.2 10^3/uL (1.5-5.0); LYMPH % 25.3 % (24.0-44.0); MEAN CORPUSCULAR HEMOGLOBIN 29.5 pg (27.0-33.0); MEAN CORPUSCULAR HGB CONC 32.6 g/dl (32.0-36.5); MEAN CORPUSCULAR VOLUME 90.5 fl (80.0-96.0); MONO # 0.7 10^3/uL (0.0-0.8); MONO % 5.5 % (2.0-8.0); NEUTROPHILS # 8.4 10^3/uL (1.5-8.5); NEUTROPHILS % 66.4 % (36.0-66.0); PLATELET COUNT, AUTOMATED 228 10^3/uL (150-450); RED BLOOD COUNT 5.76 10^6/uL (4.00-5.40); WHITE BLOOD COUNT 12.6 10^3/uL (4.0-10.0)
[2021-04-15 14:39] LABS: CREATININE, URINE 41.3 MG/DL; MALB URINE SIEMENS 12.7 MG/L; MAU/CREAT RATIO 30.7 MCG/MG (0.0-30.0)
[2021-04-15 14:51] LABS: BLOOD UREA NITROGEN 18 MG/DL (7-18); CREATININE FOR GFR 0.81 MG/DL (0.55-1.30); GLUCOSE, FASTING 152 MG/DL (70-100)
[2021-04-15 14:52] LABS: ALBUMIN 3.9 GM/DL (3.2-5.2); ALT/SGPT 58 U/L (12-78); BILIRUBIN,TOTAL 0.3 MG/DL (0.2-1.0); CALCIUM LEVEL 10.9 MG/DL (8.8-10.2); CARBON DIOXIDE LEVEL 32 MEQ/L (21-32); CHLORIDE LEVEL 99 MEQ/L (98-107); CHOLESTEROL LEVEL 161 MG/DL (<200); CHOLESTEROL RISK RATIO 4.735 (<5); GLOMERULAR FILTRATION RATE > 60.0 (>45); HDL CHOLESTEROL 34 MG/DL (>40); LDL CHOLESTEROL 86 MG/DL (<100); NON-HDL-C 127 MG/DL; POTASSIUM SERUM 3.7 MEQ/L (3.5-5.1); SODIUM LEVEL 138 MEQ/L (136-145); TOTAL PROTEIN 7.7 GM/DL (6.4-8.2); TRIGLYCERIDES LEVEL 203 MG/DL (<150); VITAMIN B12 LEVEL 1268 PG/ML (247-911)
[2021-04-15 15:22] LABS: HEMOGLOBIN A1c 7.9 %
== END ==
LOC: M SFHCADAM 09:07
PROVIDERS: ATTEND Physician Assistant Medical
DX: E78.5 Hyperlipidemia, unspecified (principal); E55.9 Vitamin D deficiency, unspecified; E53.8 Deficiency of other specified B group vitamins; E11.630 Type 2 diabetes mellitus with periodontal disease

== ENCOUNTER → 2021-05-19 | Outpatient (CLI) | payer MEDICARE, BC ==
--- NOTE | 2021-05-19 11:36 | REPMRS ---
Patient History The patient states she had a clinical breast exam in May 2021. Patient is postmenopausal. Family history of unknown cancer in mother, unknown cancer in maternal unspecified relative. Took hormonal contraceptives for 25 years. Patient states no breast complaints today. Patient has signed MRS History Sheet. Digital Woman Screen Mammo: May 19, 2021 - Exam #: [id number] Bilateral CC and MLO view(s) were taken. Technologist: Arabella Sandra, Technologist Prior study comparison: October 02, 2013, bilateral bilat screen digital mammo, performed at [facility] ([place]). September 16, 2012, bilateral bilat screen digital mammo, performed at [facility] ([facility]). FINDINGS: There are scattered fibroglandular densities. Screening. Digital screening (2D) mammography was performed bilaterally in the CC and MLO projections. Additionally, breast tomosynthesis (3D mammography) was performed bilaterally in the CC and MLO projections. Todays exam was compared to the prior exam/exams. By history, the patient has no complaints of a palpable breast abnormality or other significant breast complaints. The Volpara volumetric breast density category is B, there are scattered areas of fibroglandular densities. There are no prior DBT images for comparison. The breasts are unchanged in size and shape. There are no harrison-soft tissue densities or spiculated masses. There are stable benign nodules in the left breast. There is no internal architectural distortion. There are no suspicious harrison-calcific clusters. Once again, stable benign appearing calcifications are seen.Skin thickening or nipple retraction is not present. IMPRESSION: BI-RADS Category 2- Benign Findings. There is no evidence of malignant alteration of the breasts. Followup examination recommended in one year. This mammogram was read with the assistance of [facility] [employer],an FDA approved computer aided detection system for mammography. The lifetime Tyrer-Cuzick score is 4.4% Negative x-ray reports should not delay surgical consultation if a dominant or clinically suspicious mass is present. Not all breast cancers can be identified by mammography. Therefore, we recommend that you continue to perform regular breast self-examination and physical examination and then promptly contact your physician of any concerns or changes. Adenosis and dense breasts may obscure an underlying neoplasm. No significant changes when compared with prior studies. Assessment: BI-RADS/ACR category 2 mammogram. Benign Findings. Recommendation Routine screening mammogram. Electronically Signed By: John Brian MD 05/19/21 0730
== END ==
LOC: M WHC 09:26
PROVIDERS: ATTEND Obstetrics & Gynecology
DX: Z12.31 Encounter for screening mammogram for malignant neoplasm of breast (principal)

== ENCOUNTER → 2021-08-11 | Outpatient (CLI) | payer MEDICARE, BC | LOC: M RAD 08:33 | PROVIDERS: ATTEND Internal Medicine Pulmonary Disease | DX: Z87.891 Personal history of nicotine dependence (principal) ==

== ENCOUNTER → 2021-10-08 | Outpatient (REF) | payer MEDICARE, BC ==
[2021-10-08 13:29] LABS: BASO # 0.1 10^3/uL (0.0-0.2); BASO % 0.8 % (0.0-1.0); EOS # 0.2 10^3/uL (0.0-0.5); EOS % 2.2 % (0.0-3.0); HEMATOCRIT 50.2 % (36.0-47.0); HEMOGLOBIN 16.2 g/dl (12.0-15.5); LYMPH # 2.6 10^3/uL (1.5-5.0); LYMPH % 23.2 % (24.0-44.0); MEAN CORPUSCULAR HEMOGLOBIN 28.9 pg (27.0-33.0); MEAN CORPUSCULAR HGB CONC 32.3 g/dl (32.0-36.5); MEAN CORPUSCULAR VOLUME 89.5 fl (80.0-96.0); MONO # 0.6 10^3/uL (0.0-0.8); NEUTROPHILS # 7.6 10^3/uL (1.5-8.5); NEUTROPHILS % 68.1 % (36.0-66.0); PLATELET COUNT, AUTOMATED 199 10^3/uL (150-450); RED BLOOD COUNT 5.61 10^6/uL (4.00-5.40); WHITE BLOOD COUNT 11.2 10^3/uL (4.0-10.0)
[2021-10-08 13:58] LABS: ALBUMIN 3.8 GM/DL (3.2-5.2); ALT/SGPT 57 U/L (12-78); BILIRUBIN,TOTAL 0.4 MG/DL (0.2-1.0); BLOOD UREA NITROGEN 12 MG/DL (7-18); CARBON DIOXIDE LEVEL 28 MEQ/L (21-32); CHLORIDE LEVEL 99 MEQ/L (98-107); CHOLESTEROL LEVEL 167 MG/DL (<200); CHOLESTEROL RISK RATIO 5.566 (<5); CREATININE FOR GFR 0.78 MG/DL (0.55-1.30); GLOMERULAR FILTRATION RATE > 60.0 (>45); GLUCOSE, FASTING 208 MG/DL (70-100); HDL CHOLESTEROL 30 MG/DL (>40); LDL CHOLESTEROL 74 MG/DL (<100); NON-HDL-C 137 MG/DL; SODIUM LEVEL 138 MEQ/L (136-145); TOTAL 25(OH) VITAMIN D 32.3 NG/ML (30.0-100.0); TOTAL PROTEIN 7.3 GM/DL (6.4-8.2); TRIGLYCERIDES LEVEL 313 MG/DL (<150); VITAMIN B12 LEVEL 511 PG/ML (247-911)
[2021-10-08 14:39] LABS: HEMOGLOBIN A1c 8.6 %
== END ==
LOC: M SFHCADAM 07:37
PROVIDERS: ATTEND Physician Assistant Medical
DX: E11.630 Type 2 diabetes mellitus with periodontal disease (principal); I10 Essential (primary) hypertension; E78.5 Hyperlipidemia, unspecified; E55.9 Vitamin D deficiency, unspecified; F17.200 Nicotine dependence, unspecified, uncomplicated; E66.01 Morbid (severe) obesity due to excess calories; G47.33 Obstructive sleep apnea (adult) (pediatric); E53.8 Deficiency of other specified B group vitamins; K76.0 Fatty (change of) liver, not elsewhere classified; E83.52 Hypercalcemia

== ENCOUNTER → 2022-04-13 | Outpatient (REF) | payer MEDICARE, BC ==
[2022-04-13 17:22] LABS: ALBUMIN 3.6 GM/DL (3.2-5.2); ALT/SGPT 53 U/L (12-78); BILIRUBIN,TOTAL 0.6 MG/DL (0.2-1.0); BLOOD UREA NITROGEN 12 MG/DL (7-18); CALCIUM LEVEL 9.7 MG/DL (8.8-10.2); CARBON DIOXIDE LEVEL 28 MEQ/L (21-32); CHLORIDE LEVEL 98 MEQ/L (98-107); CHOLESTEROL LEVEL 147 MG/DL (<200); CHOLESTEROL RISK RATIO 5.444 (<5); CREATININE FOR GFR 0.96 MG/DL (0.55-1.30); GLOMERULAR FILTRATION RATE > 60.0 (>45); GLUCOSE, FASTING 137 MG/DL (70-100); HDL CHOLESTEROL 27 MG/DL (>40); LDL CHOLESTEROL 54 MG/DL (<100); NON-HDL-C 120 MG/DL; POTASSIUM SERUM 3.5 MEQ/L (3.5-5.1); SODIUM LEVEL 136 MEQ/L (136-145); TOTAL PROTEIN 7.2 GM/DL (6.4-8.2); TRIGLYCERIDES LEVEL 328 MG/DL (<150)
[2022-04-13 17:50] LABS: CREATININE, URINE 20.8 MG/DL; MALB URINE SIEMENS 7.7 MG/L
[2022-04-13 18:04] LABS: HEMOGLOBIN A1c 8.6 %
[2022-04-13 18:11] LABS: PTH INTACT 16.3 PG/ML (18.5-88.0); TOTAL 25(OH) VITAMIN D 43.6 NG/ML (30.0-100.0); VITAMIN B12 LEVEL 1098 PG/ML (247-911)
== END ==
LOC: M SFHCADAM 10:37
PROVIDERS: ATTEND Physician Assistant Medical
DX: E83.52 Hypercalcemia (principal); E11.630 Type 2 diabetes mellitus with periodontal disease; E78.5 Hyperlipidemia, unspecified; E55.9 Vitamin D deficiency, unspecified; E53.8 Deficiency of other specified B group vitamins; K76.0 Fatty (change of) liver, not elsewhere classified

== ENCOUNTER → 2022-04-30 | Outpatient (CLI) | payer MEDICARE, BC | LOC: M RAD 07:05 | PROVIDERS: ATTEND Physician Assistant Medical | DX: K76.0 Fatty (change of) liver, not elsewhere classified (principal) ==

== ENCOUNTER → 2022-05-11 | Outpatient (REF) | payer MEDICARE, BC | LOC: M SFHCDERM 17:05 | PROVIDERS: ATTEND Physician Assistant | DX: C44.601 Unspecified malignant neoplasm of skin of unspecified upper limb, including shoulder (principal) ==

== ENCOUNTER → 2022-05-26 | Outpatient (CLI) | payer MEDICARE, BC | LOC: M CARPUL 13:09 | PROVIDERS: ATTEND Physician Assistant Medical | DX: I10 Essential (primary) hypertension (principal); G47.33 Obstructive sleep apnea (adult) (pediatric); R00.2 Palpitations; R94.31 Abnormal electrocardiogram [ECG] [EKG] ==

== ENCOUNTER → 2022-07-07 | Outpatient (REF) | payer MEDICARE, BC | LOC: M SFHCDERM 17:17 | PROVIDERS: ATTEND Physician Assistant | DX: C44.92 Squamous cell carcinoma of skin, unspecified (principal) ==

== ENCOUNTER → 2022-08-11 | Outpatient (REF) | payer MEDICARE, BC ==
[2022-08-11 16:41] LABS: ALBUMIN 3.6 G/DL (3.2-5.2); BLOOD UREA NITROGEN 14 MG/DL (9-23); CALCIUM LEVEL 9.8 MG/DL (8.3-10.6); CARBON DIOXIDE LEVEL 29 MMOL/L (20-31); CHLORIDE LEVEL 102 MMOL/L (98-107); CREATININE FOR GFR 0.79 MG/DL (0.55-1.30); GLOMERULAR FILTRATION RATE > 60.0 (>45); GLUCOSE, FASTING 42 MG/DL (74-106); MAGNESIUM LEVEL 1.8 MG/DL (1.8-2.4); PHOSPHORUS LEVEL 3.2 MG/DL (2.4-5.1); POTASSIUM SERUM 3.3 MMOL/L (3.5-5.1); SODIUM LEVEL 141 MMOL/L (136-145)
== END ==
LOC: M LABDRWAD 15:57
PROVIDERS: ATTEND Internal Medicine Cardiovascular Disease
DX: I11.0 Hypertensive heart disease with heart failure (principal); R60.0 Localized edema

== ENCOUNTER → 2022-08-25 | Outpatient (REF) | payer MEDICARE, BC ==
[2022-08-25 13:14] LABS: ALBUMIN 3.9 G/DL (3.2-5.2); BLOOD UREA NITROGEN 19 MG/DL (9-23); CALCIUM LEVEL 9.6 MG/DL (8.3-10.6); CARBON DIOXIDE LEVEL 30 MMOL/L (20-31); CHLORIDE LEVEL 101 MMOL/L (98-107); CREATININE FOR GFR 0.81 MG/DL (0.55-1.30); GLOMERULAR FILTRATION RATE > 60.0 (>45); GLUCOSE, FASTING 67 MG/DL (74-106); PHOSPHORUS LEVEL 3.9 MG/DL (2.4-5.1); POTASSIUM SERUM 4.5 MMOL/L (3.5-5.1); SODIUM LEVEL 138 MMOL/L (136-145)
== END ==
LOC: M LABDRWAD 12:29
PROVIDERS: ATTEND Internal Medicine Cardiovascular Disease
DX: I50.32 Chronic diastolic (congestive) heart failure (principal)

== ENCOUNTER → 2022-09-02 | Outpatient (CLI) | payer MEDICARE, BC | LOC: M RAD 14:57 | PROVIDERS: ATTEND Physician Assistant Medical | DX: F17.218 Nicotine dependence, cigarettes, with other nicotine-induced disorders (principal) ==

== ENCOUNTER → 2022-10-12 | Outpatient (REF) | payer MEDICARE, BC ==
[2022-10-12 13:06] LABS: BASO # 0.1 10^3/uL (0.0-0.2); BASO % 0.8 % (0.0-1.0); EOS # 0.2 10^3/uL (0.0-0.5); EOS % 1.8 % (0.0-3.0); LYMPH # 2.9 10^3/uL (1.5-5.0); MEAN CORPUSCULAR HEMOGLOBIN 29.1 pg (27.0-33.0); MEAN CORPUSCULAR VOLUME 91.1 fl (80.0-96.0); MONO # 0.5 10^3/uL (0.0-0.8); MONO % 4.1 % (2.0-8.0); NEUTROPHILS # 7.5 10^3/uL (1.5-8.5); NEUTROPHILS % 66.9 % (36.0-66.0); PLATELET COUNT, AUTOMATED 219 10^3/uL (150-450); RED BLOOD COUNT 5.49 10^6/uL (4.00-5.40); WHITE BLOOD COUNT 11.2 10^3/uL (4.0-10.0)
[2022-10-12 13:36] LABS: ALBUMIN 3.8 G/DL (3.2-5.2); ALKALINE PHOSPHATASE 89 U/L (46-116); ALT/SGPT 20 U/L (7.0-40); AST/SGOT 16 U/L (<34); BILIRUBIN,TOTAL 0.3 MG/DL (0.3-1.2); BLOOD UREA NITROGEN 22 MG/DL (9-23); CALCIUM LEVEL 10.1 MG/DL (8.3-10.6); CARBON DIOXIDE LEVEL 29 MMOL/L (20-31); CHLORIDE LEVEL 102 MMOL/L (98-107); CHOLESTEROL LEVEL 140 MG/DL (<200); CHOLESTEROL RISK RATIO 4.05 (<5); CREATININE FOR GFR 0.88 MG/DL (0.55-1.30); GLOMERULAR FILTRATION RATE > 60.0 (>45); GLUCOSE, FASTING 115 MG/DL (74-106); HDL CHOLESTEROL 34.5 MG/DL (>40); LDL CHOLESTEROL 66.3 MG/DL (<100); NON-HDL-C 105.5 MG/DL; POTASSIUM SERUM 4.4 MMOL/L (3.5-5.1); SODIUM LEVEL 139 MMOL/L (136-145); TOTAL PROTEIN 7.5 G/DL (5.7-8.2); TRIGLYCERIDES LEVEL 196 MG/DL (<150)
[2022-10-12 13:38] LABS: TOTAL 25(OH) VITAMIN D 50.8 NG/ML (20.0-100.0)
== END ==
LOC: M SFHCADAM 09:11
PROVIDERS: ATTEND Physician Assistant Medical
DX: K76.0 Fatty (change of) liver, not elsewhere classified (principal); E78.5 Hyperlipidemia, unspecified; E55.9 Vitamin D deficiency, unspecified; E11.65 Type 2 diabetes mellitus with hyperglycemia

== ENCOUNTER → 2022-11-30 | Outpatient (REF) | payer MEDICARE, BC ==
[~2022-11-30] MED LIST changes: -K-TA10TA PO; +POTA-164 PO
[2022-11-30 12:52] LABS: BASO # 0.1 10^3/uL (0.0-0.2); BASO % 0.8 % (0.0-1.0); EOS # 0.2 10^3/uL (0.0-0.5); EOS % 1.8 % (0.0-3.0); HEMATOCRIT 49.8 % (36.0-47.0); HEMOGLOBIN 15.9 g/dl (12.0-15.5); LYMPH # 2.7 10^3/uL (1.5-5.0); MEAN CORPUSCULAR HGB CONC 31.9 g/dl (32.0-36.5); MEAN CORPUSCULAR VOLUME 90.9 fl (80.0-96.0); MONO # 0.7 10^3/uL (0.0-0.8); MONO % 6.4 % (2.0-8.0); NEUTROPHILS # 6.6 10^3/uL (1.5-8.5); NEUTROPHILS % 64.5 % (36.0-66.0); PLATELET COUNT, AUTOMATED 217 10^3/uL (150-450); RED BLOOD COUNT 5.48 10^6/uL (4.00-5.40); WHITE BLOOD COUNT 10.3 10^3/uL (4.0-10.0)
[2022-11-30 13:19] LABS: ALBUMIN 4.1 G/DL (3.2-5.2); BLOOD UREA NITROGEN 22 MG/DL (9-23); CALCIUM LEVEL 10.5 MG/DL (8.3-10.6); CARBON DIOXIDE LEVEL 29 MMOL/L (20-31); CHLORIDE LEVEL 102 MMOL/L (98-107); CREATININE FOR GFR 0.85 MG/DL (0.55-1.30); GLOMERULAR FILTRATION RATE > 60.0 (>45); GLUCOSE, FASTING 166 MG/DL (74-106); MAGNESIUM LEVEL 1.8 MG/DL (1.8-2.4); PHOSPHORUS LEVEL 4.3 MG/DL (2.4-5.1); POTASSIUM SERUM 4.5 MMOL/L (3.5-5.1); SODIUM LEVEL 137 MMOL/L (136-145)
== END ==
LOC: M LABDRWAD 12:25
PROVIDERS: ATTEND Internal Medicine Cardiovascular Disease
DX: I50.32 Chronic diastolic (congestive) heart failure (principal); I47.1 Supraventricular tachycardia; R01.1 Cardiac murmur, unspecified

== ENCOUNTER → 2023-02-01 | Outpatient (REF) | payer MEDICARE, BC ==
[2023-02-01 15:23] LABS: BASO # 0.1 10^3/uL (0.0-0.2); BASO % 0.7 % (0.0-1.0); EOS # 0.2 10^3/uL (0.0-0.5); EOS % 1.7 % (0.0-3.0); HEMATOCRIT 51.4 % (36.0-47.0); HEMOGLOBIN 16.4 g/dl (12.0-15.5); LYMPH # 2.5 10^3/uL (1.5-5.0); LYMPH % 20.1 % (24.0-44.0); MEAN CORPUSCULAR HEMOGLOBIN 29.3 pg (27.0-33.0); MEAN CORPUSCULAR HGB CONC 31.9 g/dl (32.0-36.5); MEAN CORPUSCULAR VOLUME 91.9 fl (80.0-96.0); MONO # 0.6 10^3/uL (0.0-0.8); MONO % 4.4 % (2.0-8.0); NEUTROPHILS # 9.1 10^3/uL (1.5-8.5); NEUTROPHILS % 72.5 % (36.0-66.0); PLATELET COUNT, AUTOMATED 239 10^3/uL (150-450); RED BLOOD COUNT 5.59 10^6/uL (4.00-5.40); WHITE BLOOD COUNT 12.6 10^3/uL (4.0-10.0)
[2023-02-01 15:34] LABS: HEMOGLOBIN A1c 7.6 % (4.0-6.0)
[2023-02-01 15:50] LABS: ALBUMIN 3.7 G/DL (3.2-5.2); ALKALINE PHOSPHATASE 87 U/L (46-116); ALT/SGPT 22 U/L (7.0-40); AST/SGOT 9 U/L (<34); BILIRUBIN,TOTAL 0.2 MG/DL (0.3-1.2); BLOOD UREA NITROGEN 18 MG/DL (9-23); CALCIUM LEVEL 10.3 MG/DL (8.3-10.6); CARBON DIOXIDE LEVEL 28 MMOL/L (20-31); CHLORIDE LEVEL 100 MMOL/L (98-107); CHOLESTEROL LEVEL 157 MG/DL (<200); CHOLESTEROL RISK RATIO 4.89 (<5); CREATININE FOR GFR 0.87 MG/DL (0.55-1.30); GLOMERULAR FILTRATION RATE > 60.0 (>45); GLUCOSE, FASTING 224 MG/DL (74-106); HDL CHOLESTEROL 32.1 MG/DL (>40); LDL CHOLESTEROL 51.3 MG/DL (<100); NON-HDL-C 124.9 MG/DL; POTASSIUM SERUM 4.5 MMOL/L (3.5-5.1); SODIUM LEVEL 139 MMOL/L (136-145); TOTAL PROTEIN 7.3 G/DL (5.7-8.2); TRIGLYCERIDES LEVEL 368 MG/DL (<150)
== END ==
LOC: M SFHCADAM 14:03
PROVIDERS: ATTEND Physician Assistant Medical
DX: E55.9 Vitamin D deficiency, unspecified (principal); E53.8 Deficiency of other specified B group vitamins; E11.630 Type 2 diabetes mellitus with periodontal disease; Z79.899 Other long term (current) drug therapy

== ENCOUNTER → 2023-06-02 | Outpatient (REF) | payer MEDICARE, BC ==
[2023-06-02 14:05] LABS: CREATININE, URINE 60.6 MG/DL
[2023-06-02 14:06] LABS: MALB URINE SIEMENS < 3.0 MG/L; MAU/CREAT RATIO 4.9 MCG/MG (0.0-30.0)
[2023-06-02 14:07] LABS: ALBUMIN 3.5 G/DL (3.2-5.2); ALKALINE PHOSPHATASE 77 U/L (46-116); ALT/SGPT 18 U/L (7.0-40); AST/SGOT 9 U/L (<34); BILIRUBIN,TOTAL 0.2 MG/DL (0.3-1.2); BLOOD UREA NITROGEN 22 MG/DL (9-23); CALCIUM LEVEL 9.8 MG/DL (8.3-10.6); CARBON DIOXIDE LEVEL 26 MMOL/L (20-31); CHLORIDE LEVEL 108 MMOL/L (98-107); CHOLESTEROL LEVEL 128 MG/DL (<200); CHOLESTEROL RISK RATIO 4.41 (<5); CREATININE FOR GFR 0.81 MG/DL (0.55-1.30); GLOMERULAR FILTRATION RATE > 60.0 (>45); GLUCOSE, FASTING 119 MG/DL (74-106); LDL CHOLESTEROL 60.4 MG/DL (<100); POTASSIUM SERUM 4.6 MMOL/L (3.5-5.1); SODIUM LEVEL 140 MMOL/L (136-145); TOTAL PROTEIN 6.6 G/DL (5.7-8.2); TRIGLYCERIDES LEVEL 193 MG/DL (<150)
[2023-06-02 14:08] LABS: THYROID STIMULATING HORMONE 2.488 uIU/ML (0.55-4.78); TOTAL 25(OH) VITAMIN D 56.3 NG/ML (20.0-100.0)
[2023-06-02 14:09] LABS: VITAMIN B12 LEVEL 434 PG/ML (211-911)
== END ==
LOC: M SFHCADAM 08:17
PROVIDERS: ATTEND Physician Assistant Medical
DX: E55.9 Vitamin D deficiency, unspecified (principal); E53.8 Deficiency of other specified B group vitamins; E11.630 Type 2 diabetes mellitus with periodontal disease

== ENCOUNTER → 2023-07-05 | Outpatient (CLI) | payer MEDICARE, BC | LOC: M WHC 07:58 | PROVIDERS: ATTEND Nurse Practitioner Family | DX: Z12.31 Encounter for screening mammogram for malignant neoplasm of breast (principal) ==

== ENCOUNTER → 2023-09-27 | Outpatient (CLI) | payer MEDICARE, BC ==
[~2023-09-27] MED LIST changes: +METO200T15 PO; -METO200T28 PO
== END ==
LOC: M RAD 08:33
PROVIDERS: ATTEND Physician Assistant Medical
DX: Z87.891 Personal history of nicotine dependence (principal)

== ENCOUNTER → 2023-10-30 | Outpatient (CLI) | payer MEDICARE, BC ==
[2023-10-30 10:21] LABS: BASO # 0.1 10^3/uL (0.0-0.2); BASO % 0.7 % (0.0-1.0); EOS # 0.4 10^3/uL (0.0-0.5); EOS % 2.9 % (0.0-3.0); HEMATOCRIT 43.8 % (36.0-47.0); HEMOGLOBIN 14.5 g/dl (12.0-15.5); LYMPH # 2.2 10^3/uL (1.5-5.0); LYMPH % 18.1 % (24.0-44.0); MEAN CORPUSCULAR HEMOGLOBIN 30.1 pg (27.0-33.0); MEAN CORPUSCULAR HGB CONC 33.1 g/dl (32.0-36.5); MEAN CORPUSCULAR VOLUME 90.9 fl (80.0-96.0); MONO # 0.7 10^3/uL (0.0-0.8); MONO % 5.9 % (2.0-8.0); NEUTROPHILS # 8.7 10^3/uL (1.5-8.5); NEUTROPHILS % 71.7 % (36.0-66.0); PLATELET COUNT, AUTOMATED 212 10^3/uL (150-450); RED BLOOD COUNT 4.82 10^6/uL (4.00-5.40); WHITE BLOOD COUNT 12.2 10^3/uL (4.0-10.0)
[2023-10-30 10:45] LABS: ALBUMIN 3.8 G/DL (3.2-5.2); CALCIUM LEVEL 9.8 MG/DL (8.3-10.6); CREATININE FOR GFR 1.06 MG/DL (0.55-1.30); GLOMERULAR FILTRATION RATE 54.7 (>45); MAGNESIUM LEVEL 1.9 MG/DL (1.8-2.4); PHOSPHORUS LEVEL 3.6 MG/DL (2.4-5.1); POTASSIUM SERUM 4.1 MMOL/L (3.5-5.1)
== END ==
LOC: M LAB 09:50
PROVIDERS: ATTEND Internal Medicine Cardiovascular Disease
DX: I50.32 Chronic diastolic (congestive) heart failure (principal)

== ENCOUNTER → 2023-11-18 | Outpatient (CLI) | payer MEDICARE, BC ==
[2023-11-18 18:24] LABS: BASO # 0.1 10^3/uL (0.0-0.2); BASO % 0.9 % (0.0-1.0); EOS # 0.2 10^3/uL (0.0-0.5); EOS % 2.2 % (0.0-3.0); HEMATOCRIT 46.7 % (36.0-47.0); HEMOGLOBIN 14.9 g/dl (12.0-15.5); LYMPH # 2.5 10^3/uL (1.5-5.0); LYMPH % 24.1 % (24.0-44.0); MEAN CORPUSCULAR HEMOGLOBIN 29.5 pg (27.0-33.0); MEAN CORPUSCULAR HGB CONC 31.9 g/dl (32.0-36.5); MEAN CORPUSCULAR VOLUME 92.5 fl (80.0-96.0); MONO # 0.6 10^3/uL (0.0-0.8); MONO % 5.9 % (2.0-8.0); NEUTROPHILS # 6.9 10^3/uL (1.5-8.5); NEUTROPHILS % 66.3 % (36.0-66.0); PLATELET COUNT, AUTOMATED 222 10^3/uL (150-450); RED BLOOD COUNT 5.05 10^6/uL (4.00-5.40); WHITE BLOOD COUNT 10.3 10^3/uL (4.0-10.0)
[2023-11-18 18:35] LABS: HEMOGLOBIN A1c 6.6 % (4.0-6.0)
[2023-11-18 18:58] LABS: CREATININE, URINE 92.8 MG/DL
[2023-11-18 18:59] LABS: THYROID STIMULATING HORMONE 2.582 uIU/ML (0.55-4.78)
[2023-11-18 19:01] LABS: TOTAL 25(OH) VITAMIN D 54.4 NG/ML (20.0-100.0)
[2023-11-18 19:02] LABS: MAU/CREAT RATIO 4.3 MCG/MG (0.0-30.0)
[2023-11-18 19:05] LABS: ALBUMIN 3.7 G/DL (3.2-5.2); ALKALINE PHOSPHATASE 85 U/L (46-116); ALT/SGPT 16 U/L (7.0-40); AST/SGOT < 8 U/L (<34); BILIRUBIN,TOTAL 0.3 MG/DL (0.3-1.2); BLOOD UREA NITROGEN 35 MG/DL (9-23); CALCIUM LEVEL 10.8 MG/DL (8.3-10.6); CARBON DIOXIDE LEVEL 28 MMOL/L (20-31); CHLORIDE LEVEL 106 MMOL/L (98-107); CHOLESTEROL LEVEL 147 MG/DL (<200); CHOLESTEROL RISK RATIO 5.65 (<5); CREATININE FOR GFR 0.97 MG/DL (0.55-1.30); GLOMERULAR FILTRATION RATE > 60.0 (>45); GLUCOSE, FASTING 77 MG/DL (74-106); LDL CHOLESTEROL 55.4 MG/DL (<100); POTASSIUM SERUM 4.6 MMOL/L (3.5-5.1); SODIUM LEVEL 140 MMOL/L (136-145); TOTAL PROTEIN 7.3 G/DL (5.7-8.2); TRIGLYCERIDES LEVEL 328 MG/DL (<150)
== END ==
LOC: M PLALAB 15:47
PROVIDERS: ATTEND Physician Assistant Medical
DX: E55.9 Vitamin D deficiency, unspecified (principal); E53.8 Deficiency of other specified B group vitamins; E11.630 Type 2 diabetes mellitus with periodontal disease; E78.5 Hyperlipidemia, unspecified

== ENCOUNTER 2024-01-15 16:59 | Emergency (ER) | payer MEDICARE, BC ==
[~2024-01-15] VITALS: Ht 170.2 cm; Wt 114.0 kg
[2024-01-15] MEDS: LIDOCAINE 4% CREAM 5GM (LMX4) TOP ONE (19:50)
[2024-01-15 20:46] VITALS: BP 143/70; TEMP 97.1; O2SAT 96
== END 2024-01-15 21:10 | disposition home or self-care (01) ==
LOC: M ED 16:59
DX: S69.91XA Unspecified injury of right wrist, hand and finger(s), initial encounter (principal); Y92.9 Unspecified place or not applicable; Y93.9 Activity, unspecified; Y99.0 Civilian activity done for income or pay; I10 Essential (primary) hypertension; Z88.0 Allergy status to penicillin; Z88.8 Allergy status to other drugs, medicaments and biological substances; Z79.1 Long term (current) use of non-steroidal anti-inflammatories (NSAID); Z79.4 Long term (current) use of insulin; Z79.84 Long term (current) use of oral hypoglycemic drugs; Z79.810 Long term (current) use of selective estrogen receptor modulators (SERMs); Z79.899 Other long term (current) drug therapy

== ENCOUNTER → 2024-02-18 | Outpatient (REF) | payer MEDICARE, BC ==
[2024-02-18 14:05] LABS: BASO # 0.1 10^3/uL (0.0-0.2); BASO % 0.8 % (0.0-1.0); EOS # 0.3 10^3/uL (0.0-0.5); EOS % 2.4 % (0.0-3.0); HEMATOCRIT 46.7 % (36.0-47.0); LYMPH # 2.5 10^3/uL (1.5-5.0); LYMPH % 23.4 % (24.0-44.0); MEAN CORPUSCULAR HGB CONC 32.1 g/dl (32.0-36.5); MEAN CORPUSCULAR VOLUME 93.4 fl (80.0-96.0); MONO # 0.6 10^3/uL (0.0-0.8); MONO % 5.5 % (2.0-8.0); NEUTROPHILS # 7.2 10^3/uL (1.5-8.5); NEUTROPHILS % 67.5 % (36.0-66.0); PLATELET COUNT, AUTOMATED 223 10^3/uL (150-450); WHITE BLOOD COUNT 10.6 10^3/uL (4.0-10.0)
[2024-02-18 14:27] LABS: ALKALINE PHOSPHATASE 110 U/L (46-116); ALT/SGPT 17 U/L (7.0-40); AST/SGOT < 8 U/L (<34); BILIRUBIN,TOTAL 0.3 MG/DL (0.3-1.2); BLOOD UREA NITROGEN 23 MG/DL (9-23); CALCIUM LEVEL 10.7 MG/DL (8.3-10.6); CARBON DIOXIDE LEVEL 29 MMOL/L (20-31); CHLORIDE LEVEL 103 MMOL/L (98-107); CREATININE FOR GFR 0.86 MG/DL (0.55-1.30); GLOMERULAR FILTRATION RATE > 60.0 (>39); GLUCOSE, FASTING 194 MG/DL (74-106); POTASSIUM SERUM 4.3 MMOL/L (3.5-5.1); SODIUM LEVEL 138 MMOL/L (136-145); TOTAL PROTEIN 7.7 G/DL (5.7-8.2)
== END ==
LOC: M LABDRWAD 12:40
PROVIDERS: ATTEND Internal Medicine Cardiovascular Disease
DX: I50.32 Chronic diastolic (congestive) heart failure (principal); I11.0 Hypertensive heart disease with heart failure; G47.33 Obstructive sleep apnea (adult) (pediatric)

== ENCOUNTER → 2024-07-10 | Outpatient (CLI) | payer MEDICARE, BC | LOC: M WHC 08:41 | PROVIDERS: ATTEND Physician Assistant Medical | DX: Z78.0 Asymptomatic menopausal state (principal); R92.323 Mammographic fibroglandular density, bilateral breasts; Z12.31 Encounter for screening mammogram for malignant neoplasm of breast ==

== ENCOUNTER → 2024-07-18 | Outpatient (REF) | payer MEDICARE, BC ==
[2024-07-18 15:11] LABS: BASO # 0.1 10^3/uL (0.0-0.2); EOS # 0.3 10^3/uL (0.0-0.5); HEMATOCRIT 45.4 % (36.0-47.0); HEMOGLOBIN 14.1 g/dl (12.0-15.5); LYMPH # 2.6 10^3/uL (1.5-5.0); LYMPH % 27.1 % (24.0-44.0); MEAN CORPUSCULAR HEMOGLOBIN 29.4 pg (27.0-33.0); MEAN CORPUSCULAR HGB CONC 31.1 g/dl (32.0-36.5); MEAN CORPUSCULAR VOLUME 94.8 fl (80.0-96.0); MONO # 0.6 10^3/uL (0.0-0.8); MONO % 6.8 % (2.0-8.0); NEUTROPHILS # 5.8 10^3/uL (1.5-8.5); NEUTROPHILS % 61.6 % (36.0-66.0); PLATELET COUNT, AUTOMATED 198 10^3/uL (150-450); RED BLOOD COUNT 4.79 10^6/uL (4.00-5.40); WHITE BLOOD COUNT 9.4 10^3/uL (4.0-10.0)
[2024-07-18 15:16] LABS: ALBUMIN 3.7 G/DL (3.2-5.2); ALKALINE PHOSPHATASE 136 U/L (35-104); ALT/SGPT 16 U/L (7.0-40); AST/SGOT 9 U/L (<34); BILIRUBIN,TOTAL < 0.2 MG/DL (0.3-1.2); BLOOD UREA NITROGEN 29 MG/DL (9-23); CALCIUM LEVEL 9.7 MG/DL (8.3-10.6); CARBON DIOXIDE LEVEL 30 MMOL/L (20-31); CHLORIDE LEVEL 103 MMOL/L (98-107); CHOLESTEROL LEVEL 176 MG/DL (<200); CHOLESTEROL RISK RATIO 5.78 (<5); CREATININE FOR GFR 0.99 MG/DL (0.55-1.30); GLUCOSE, FASTING 168 MG/DL (74-106); HDL CHOLESTEROL 30.4 MG/DL (>40); NON-HDL-C 145.6 MG/DL; POTASSIUM SERUM 4.8 MMOL/L (3.5-5.1); SODIUM LEVEL 139 MMOL/L (136-145); TOTAL PROTEIN 7.4 G/DL (5.7-8.2); TRIGLYCERIDES LEVEL 588 MG/DL (<150)
[2024-07-18 15:17] LABS: THYROID STIMULATING HORMONE 3.294 uIU/ML (0.55-4.78)
[2024-07-18 15:18] LABS: TOTAL 25(OH) VITAMIN D 41.2 NG/ML (20.0-100.0)
[2024-07-18 15:39] LABS: HEMOGLOBIN A1c 8.1 % (4.0-6.0)
== END ==
LOC: M SFHCADAM 08:33
PROVIDERS: ATTEND Physician Assistant Medical
DX: I11.0 Hypertensive heart disease with heart failure (principal); E55.9 Vitamin D deficiency, unspecified; E11.630 Type 2 diabetes mellitus with periodontal disease; E11.65 Type 2 diabetes mellitus with hyperglycemia; K76.0 Fatty (change of) liver, not elsewhere classified

== ENCOUNTER → 2024-08-21 | Outpatient (CLI) | payer MEDICARE, BC | LOC: M WHC 09:05 | PROVIDERS: ATTEND Physician Assistant Medical | DX: K76.0 Fatty (change of) liver, not elsewhere classified (principal) ==

== ENCOUNTER 2024-10-10 10:12 | Day surgery (SDC) | payer MEDICARE, BC ==
[~2024-10-10] VITALS: Ht 165.1 cm; Wt 116.1 kg
[~2024-10-10 10:12] MED LIST changes: +AMLO-751 PO; -AMLO10TA PO; +BISO10TA14 PO; +LIDOCAINE 2% 100MG/5ML SDV (FOR ANES.) As Ordered ONE; +POTA10CA70 PO; +SPIR-10 PO; +TORS20TA2 PO; +propofoL 200 MG/20 ML VIAL As Ordered ONE
[2024-10-10] MEDS: DEXTROSE 50% 50ML SYRINGE IV STA ×2 (10:37→13:25)
[2024-10-10 14:16] VITALS: TEMP 97
[2024-10-10 14:36] VITALS: BP 142/65; O2SAT 94
== END 2024-10-10 14:50 | disposition home or self-care (01) ==
LOC: M OPP 10:12
PROVIDERS: ATTEND Surgery
DX: D12.8 Benign neoplasm of rectum (principal); K64.0 First degree hemorrhoids; Z86.0100 Personal history of colon polyps, unspecified; G47.30 Sleep apnea, unspecified; Z88.0 Allergy status to penicillin; Z88.8 Allergy status to other drugs, medicaments and biological substances; Z79.82 Long term (current) use of aspirin; Z79.4 Long term (current) use of insulin; Z79.84 Long term (current) use of oral hypoglycemic drugs; Z79.899 Other long term (current) drug therapy; F17.210 Nicotine dependence, cigarettes, uncomplicated

== ENCOUNTER → 2024-10-11 | Outpatient (CLI) | payer MEDICARE, BC ==
[~2024-10-11] MED LIST changes: -LIDOCAINE 2% 100MG/5ML SDV (FOR ANES.) As Ordered ONE; -propofoL 200 MG/20 ML VIAL As Ordered ONE
== END ==
LOC: M RAD 06:28
PROVIDERS: ATTEND Physician Assistant Medical
DX: F17.219 Nicotine dependence, cigarettes, with unspecified nicotine-induced disorders (principal)

== ENCOUNTER → 2024-11-02 | Outpatient (REF) | payer MEDICARE, BC ==
[2024-11-02 15:26] LABS: ALBUMIN 3.7 G/DL (3.2-5.2); CALCIUM LEVEL 9.4 MG/DL (8.3-10.6); CREATININE FOR GFR 1.04 MG/DL (0.55-1.30); GLOMERULAR FILTRATION RATE 57.8 (>39); PHOSPHORUS LEVEL 2.7 MG/DL (2.4-5.1); POTASSIUM SERUM 4.4 MMOL/L (3.5-5.1)
== END ==
LOC: M LABDRWAD 13:26
PROVIDERS: ATTEND Internal Medicine Cardiovascular Disease
DX: I50.32 Chronic diastolic (congestive) heart failure (principal); I11.0 Hypertensive heart disease with heart failure

== ENCOUNTER → 2025-01-10 | Outpatient (CLI) | payer MEDICARE, BC | LOC: M PLAIMG 08:35 | PROVIDERS: ATTEND Registered Nurse | DX: I50.32 Chronic diastolic (congestive) heart failure (principal); N18.30 Chronic kidney disease, stage 3 unspecified; N28.1 Cyst of kidney, acquired ==

== ENCOUNTER → 2025-01-10 | Outpatient (CLI) | payer MEDICARE, BC | LOC: M RAD 11:15 | PROVIDERS: ATTEND Physician Assistant Medical | DX: N18.30 Chronic kidney disease, stage 3 unspecified (principal); N28.1 Cyst of kidney, acquired ==

== ENCOUNTER → 2025-03-29 | Outpatient (REF) | payer MEDICARE, BC ==
[2025-03-29 14:40] LABS: BASO # 0.1 10^3/uL (0.0-0.2); BASO % 0.8 % (0.0-1.0); EOS # 0.2 10^3/uL (0.0-0.5); EOS % 1.5 % (0.0-3.0); LYMPH # 2.1 10^3/uL (1.5-5.0); LYMPH % 20.9 % (24.0-44.0); MONO # 0.6 10^3/uL (0.0-0.8); MONO % 6.0 % (2.0-8.0); NEUTROPHILS # 6.9 10^3/uL (1.5-8.5); NEUTROPHILS % 70.3 % (36.0-66.0); PLATELET COUNT, AUTOMATED 221 10^3/uL (150-450)
[2025-03-29 14:44] LABS: ESTIMATED AVERAGE GLUCOSE 134.0 MG/DL (60-110)
[2025-03-29 15:06] LABS: FREE T4 1.15 NG/DL (0.89-1.76)
[2025-03-29 15:08] LABS: TOTAL 25(OH) VITAMIN D 39.6 NG/ML (20.0-100.0)
[2025-03-29 15:10] LABS: ALT/SGPT 13.0 U/L (7.0-40); AST/SGOT 11.0 U/L (<34); CALCIUM LEVEL 9.9 MG/DL (8.3-10.6); CARBON DIOXIDE LEVEL 23.0 MMOL/L (20-31); CHLORIDE LEVEL 109.0 MMOL/L (98-107); CHOLESTEROL LEVEL 154.0 MG/DL (<200); CHOLESTEROL RISK RATIO 5.16 (<5); CREATININE FOR GFR 0.74 MG/DL (0.55-1.30); GLOMERULAR FILTRATION RATE 86.4 (>39); LDL CHOLESTEROL 74.2 MG/DL (<100); NON-HDL-C 124.2 MG/DL; POTASSIUM SERUM 4.1 MMOL/L (3.5-5.1); SODIUM LEVEL 140.0 MMOL/L (136-145); TRIGLYCERIDES LEVEL 250.0 MG/DL (<150)
== END ==
LOC: M SFHCADAM 09:02
PROVIDERS: ATTEND Physician Assistant Medical
DX: K76.0 Fatty (change of) liver, not elsewhere classified (principal); E11.630 Type 2 diabetes mellitus with periodontal disease; N18.31 Chronic kidney disease, stage 3a; E66.01 Morbid (severe) obesity due to excess calories; F17.210 Nicotine dependence, cigarettes, uncomplicated

== ENCOUNTER → 2025-04-03 | Outpatient (CLI) | payer MEDICARE, BC | LOC: M RAD 17:00 | PROVIDERS: ATTEND Orthopaedic Surgery | DX: M19.012 Primary osteoarthritis, left shoulder (principal) ==